=== PATIENT | female | born 1940 | race Caucasian/White ===

== ENCOUNTER 2024-11-28 12:02 | Emergency (ER) | payer MEDICARE, BC, SELFPAY ==
[2024-11-28 12:03] VITALS: BMI 21.9
[2024-11-28 12:15] VITALS: BP 175/96; PULSE 94; RESP 16; TEMP 36.8; O2SAT 96
--- NOTE | 2024-11-28 12:30 | EDNOTE_ITS ---
<Statement entered by Esther Virgen MD - 12/09/24 01:02> As co-signing physician, I was present and available for consult prn. I concur with the plan and care as documented by the midlevel provider. ED Epistaxis RME/HPI General Chief complaint: Epistaxis/Nasal Foreign Body Stated complaint: NOSEBLEED X3DAYS Time Seen by Provider: 11/28/24 12:07 Arrival date/time: 11/28/24 12:02 RME / HPI RME / HPI Narrative: 84-year-old female patient with significant history of hypertension not taking any blood thinner except for occasional aspirin came in for evaluation regarding nosebleeding on the left side has been ongoing for the last 3 days almost on a daily basis, lasting for several minutes but today it lasted for at least 1 hour. Currently she is not bleeding. She denies any dizziness denies any chest pain denies any other complaints. In the triage patient was noted to have a blood pressure of 175/86. Related Data Previous Rx's ?Medication ?Instructions ?Recorded oxymetazoline 0.05 % nasal mist 2 spray intranasal Q12 H PRN nasal 11/28/24 (Afrin (oxymetazoline)) congestion 3 days #15 mL Allergies Allergy/AdvReac Type Severity Reaction Status Date / Time No Known Allergies Allergy Verified 11/28/24 12:04 Review of Systems Review of Systems Narrative Review of Systems: Review of system reviewed and within normal limits except mentioned in HPI ED Exam Narrative Physical exam: VITAL SIGNS: Reviewed. GENERAL APPEARANCE: Alert and interactive, follows commands, no acute distress, HEAD AND FACE: Non-traumatic. ENT: PERRL, pink conjunctivitis, eyelid no trauma, Mucous membrane moist. NECK: Supple, nontender, no nuchal rigidity. CHEST: No tenderness, no crepitus, no paradoxical movement, no retractions. LUNGS: Clear, well ventilated, symmetric, no rales, no wheezing, no ronchi, no stridor, good breath sounds bilaterally. HEART: Regular rate, regular rhythm, no murmur, no gallops. ABDOMEN: Soft, positive bowel sounds, nondistended, no guarding, nontender, no rebound, no masses, RECTAL: Deferred. GENITAL: Deferred. NEUROLOGICAL: Gross motor function intact sensory function intact, Appropriate for age. MUSCULOSKELETAL: low back nontender, full range of motion. EXTREMITIES: Nontender, full range of motion. SKIN: Color pink, dry, no rash, no lacerations, no abrasions, no contusions. LYMPHATICS: Deferred. Course Quality Measures none Orders Category Date Time Status CBC [CBC] Stat Lab 11/28/24 12:51 Completed CMP [Comprehensive Metabolic Panel] Stat Lab 11/28/24 12:51 Completed PT [Prothrombin Time with INR] Stat Lab 11/28/24 12:51 Completed PTT [Partial Thromboplastin Time] Stat Lab 11/28/24 12:51 Completed Silver Nitrate Applicators Med 11/28/24 12:29 Discontinued 1 appl TOP X1 ONE Valsartan [Diovan] Med 11/28/24 12:38 Discontinued 160 mg PO X1 ONE Vital Signs Vital signs: Vital Signs Temperature 98.3 F 11/28/24 12:15 Pulse Rate 94 11/28/24 12:15 Respiratory Rate 16 11/28/24 12:15 Blood Pressure 175/96 H 11/28/24 12:15 Pulse Oximetry (%) 96 11/28/24 12:15 Oxygen Delivery Method Room Air 11/28/24 12:15 Epistaxis MDM Narrative MDM Narrative:: 84-year-old female patient with significant history of hypertension not taking any blood thinner except for occasional aspirin came in for evaluation regarding nosebleeding on the left side has been ongoing for the last 3 days almost on a daily basis, lasting for several minutes but today it lasted for at least 1 hour. Currently she is not bleeding. She denies any dizziness denies any chest pain denies any other complaints. In the triage patient was noted to have a blood pressure of 175/86. Patient did not take her blood pressure medication. Using silver nitrate, ice to the area on the nares there is no active bleeding however applied silver nitrate, patient tolerated procedure well. Patient did not have recurrence of nosebleeding in the ED. Patient's blood came back unremarkable no anemia PT PTT normal Patient data External records reviewed:: None Clinical information provided by:: patient Social determinants that could affect healthcare access:: none Patient has the following chronic illnesses:: Hypertension How is presenting disease/condition affected by chronic disease/condition?: exacerbated by Evaluation data The following diagnostics were reviewed and interpreted by me:: lab results Lab and/or radiology exams considered but not ordered:: None Interpretation Summary: None Medications / Prescriptions Medications or Prescriptions considered but not ordered:: None Medication administrations:: Medication Administration History Discontinued Medications Silver Nitrate (Silver Nitrate 1 Appl Ea) 1 appl TOP X1 ONE Stop: 11/28/24 12:30 Valsartan (Valsartan 80 Mg Tablet) 160 mg PO X1 ONE Stop: 11/28/24 12:39 Valsartan Consultations Consultation(s) initiated? (list below): No Diagnosis Epistaxis Differential Diagnosis: nasal bone fracture, anterior epistaxis and posterior epistaxis Most likely diagnosis given after review of the tests above:: Nosebleeding, controlled no recurrence Admission Indicated Admission indicated?: not indicated Admission Request Was there a request for admission?: No Disposition Plan Disposition Plan: Discharge Discharge Attestation Discharge Attestation: The patient and all family members were given an opportunity to ask questions and understood the discharge instructions. Discharge instructions specifically effects, indications for sooner follow up or return to the emergency department, and the expected course of current diagnosis. Patient condition: Stable Discharge Plan Plan Patient Disposition: HOME (Self Care) Discharge Disposition comment: Stable Prescriptions/Referrals Prescriptions/Med Rec: New Afrin (oxymetazoline) 0.05 % mist 2 spray intranasal Q12H PRN (Reason: nasal congestion) 3 Days Qty: 15 0RF Problem List Clinical Impression: Epistaxis Patient/Caregiver Discharge Instructions Discharge Activity: activity as tolerated Education Materials: ED Epistaxis (Adult) Additional Instructions: Thank you for the opportunity for serving you today. You are stable for discharged . You are advised to: Follow-up with your PCP in 1 to 2 days Return to ED for worsening of symptoms Increase oral fluids Take medication as prescribed as needed only for nosebleeding Please do not blow your nose for the next 48 hours Print Language: Bengali Stand Alone Forms: Bryanna Award Info., Patient Portal Info Letter DEVEN/SHOSHANA Supervising Physician DEVEN/SHOSHANA Supervising Physician: MD Filipe
[2024-11-28 13:02] LABS: Basophils # (Auto) 0.1 Thou/mm3 (0.0-0.2); Basophils % (Auto) 1 % (0-2.5); Eosinophils # (Auto) 0.2 Thou/mm3 (0.0-0.5); Eosinophils % (Auto) 2 % (0-10); Hematocrit 37.8 % (36.0-46.0); Hemoglobin 12.9 g/dL (12.0-16.0); Immature Granulocytes % (Auto) 0 % (0-0); Immature Granulocytes Auto 0.03 Thou/mm3 (0.00-0.00); Lymphocytes # (Auto) 1.8 Thou/mm3 (1.0-4.8); Lymphocytes % (Auto) 19 % (10-50); Mean Corpuscular HGB Conc 34.1 g/dl (31.0-37.0); Mean Corpuscular Hemoglobin 29.4 pg (25.0-35.0); Mean Corpuscular Volume 86 fL (80-100); Monocytes # (Auto) 0.8 Thou/mm3 (0.0-0.8); Monocytes % (Auto) 9 % (0-12); Neutrophils # (Auto) 6.3 Thou/mm3 (1.8-7.7); Neutrophils % (Auto) 69 % (37-80); Nucleated Red Blood Cell % 0 /100 WBC (0); Platelet Count 345 Thou/mm3 (140-440); RDW Standard Deviation 42.9 fL (36.4-46.3); Red Blood Count 4.39 Miln/mm3 (4.00-5.20); White Blood Count 9.2 Thou/mm3 (3.6-11.0)
[2024-11-28 13:15] LABS: Alanine Aminotransferase 15 U/L (10-49); Albumin, Serum 4.6 gm/dL (3.4-4.8); Albumin/Globulin Ratio 2.1 (1.2-2.2); Alkaline Phosphatase 76 U/L (46-116); Anion Gap 10 (7-16); Aspartate Amino Transferase 20 U/L (0-34); BUN/Creatinine Ratio 16 Ratio (12-20); Bilirubin,Total 0.5 mg/dL (0.3-1.2); Blood Urea Nitrogen 14 mg/dL (9-23); Calcium 9.4 mg/dL (8.3-10.6); Calcium (Corrected) 9.4 mg/dL (8.5-10.1); Chloride 102 mMol/L (98-107); Creatinine (Component) 0.9 mg/dL (0.6-1.3); Estimated Creatinine Clearance 39.9 mL/min (>60); Globulin 2.2 gm/dL (2.3-3.5); Glucose 116 mg/dL (74-106); Osmolality,Calculated 279 (275-295); Potassium 3.8 mMol/L (3.4-5.1); Sodium 139 mMol/L (136-145); Total Protein 6.8 gm/dL (5.7-8.2); eGFR > 60 See Note
[2024-11-28 13:16] LABS: Prothrombin Time 10.5 Seconds (9.0-12.2)
== END 2024-11-28 13:33 | disposition home or self-care (01) ==
PROVIDERS: Nurse Practitioner Family; Emergency Provider Emergency Medicine; PCP Internal Medicine
DX: R04.0 Epistaxis (principal)
CPT/HCPCS: 30901; 36415; 80053; 85025; 85610; 85730; 99283

== ENCOUNTER 2025-03-19 20:39 | Emergency (ER) | payer MEDICARE, BC, SELFPAY ==
[2025-03-19 20:42] VITALS: BMI 20.9
[2025-03-19 21:56] VITALS: BP 184/83; PULSE 89; RESP 16; TEMP 36.6; O2SAT 97
--- NOTE | 2025-03-19 22:06 | PD.EDSKIN ---
ED Skin Abcess FB-RME/HPI General Chief complaint: Skin/Abscess/Foreign Body Stated complaint: POSSIBLE SPIDER BITE SUNDAY(ABSCESS) Time Seen by Provider: 03/19/25 21:58 Arrival date/time: 03/19/25 20:39 RME / HPI RME / HPI narrative: 84-year-old female patient came in for evaluation regarding possible spider bite to the left forearm. It happened about 3 days ago, today patient noticed some redness and pustule like appearance. With discomfort. Also noticed some swelling on the surrounding. Denies any fever denies any other complaint. Dizziness vaccination is unknown. Related Data Previous Rx's ?Medication ?Instructions ?Recorded amoxicillin 875 mg-potassium 1 tab PO BID #14 tabs 03/19/25 clavulanate 125 mg tablet Allergies Allergy/AdvReac Type Severity Reaction Status Date / Time No Known Allergies Allergy Verified 03/19/25 20:47 Review of Systems Review of Systems Narrative Review of Systems: Review of system reviewed and within normal limits except mentioned in HPI ED Exam Narrative Physical exam: VITAL SIGNS: Reviewed. GENERAL APPEARANCE: Alert and interactive, follows commands, no acute distress, HEAD AND FACE: Non-traumatic. ENT: PERRL, pink conjunctivitis, eyelid no trauma, Mucous membrane moist. NECK: Supple, nontender, no nuchal rigidity. RECTAL: Deferred. GENITAL: Deferred. NEUROLOGICAL: Gross motor function intact sensory function intact, Appropriate for age. MUSCULOSKELETAL: low back nontender, full range of motion. EXTREMITIES: + Redness, swelling, with posterior leg appearance on the center, left posterior forearm, nonfluctuant, mild tenderness, full range of motion. Distal neurovascular status intact. SKIN: Color pink, dry, no rash, no lacerations, no abrasions, no contusions. LYMPHATICS: Deferred. Course Quality Measures none Orders Category Date Time Status Amoxicillin/Pot Clav 875 [Augmentin 875] Med 03/19/25 22:06 Once 1 tab PO X1 ONE TET,DIP/PERT AC (Adult)-Tdap [Boostrix Adult (Tdap) Med 03/19/25 22:06 Once Vacc] 0.5 ml IMI .ONCE ONE Vital Signs Vital signs: Vital Signs Temperature 97.9 F 03/19/25 21:56 Pulse Rate 89 03/19/25 21:56 Respiratory Rate 16 03/19/25 21:56 Blood Pressure 184/83 H 03/19/25 21:56 Pulse Oximetry (%) 97 03/19/25 21:56 Oxygen Delivery Method Room Air 03/19/25 21:56 Skin / Abscess / Foreign Body MDM Narrative MDM Narrative:: 84-year-old female patient came in for evaluation regarding possible spider bite to the left forearm. It happened about 3 days ago, today patient noticed some redness and pustule like appearance. With discomfort. Also noticed some swelling on the surrounding. Denies any fever denies any other complaint. Dizziness vaccination is unknown. Patient received Neosporin dressing. Patient was also given Augmentin. Was also given Boostrix. Patient was advised to return to the emergency room in 2 to 3 days for possible I&D if the affected area become fluctuant and ready for abscess drainage. Patient agrees with the plan Patient data External records reviewed:: None Clinical information provided by:: patient and family Social determinants that could affect healthcare access:: none Patient has the following chronic illnesses:: None How is presenting disease/condition affected by chronic disease/condition?: no chronic disease Evaluation data The following diagnostics were reviewed and interpreted by me:: other (specify) (None) Lab and/or radiology exams considered but not ordered:: None Interpretation Summary: None Medications / Prescriptions Medications or Prescriptions considered but not ordered:: None Medication administrations:: Vomiting, Boostrix and Neosporin dressing Consultations Consultation(s) initiated? (list below): No Diagnosis Skin/Abscess Differential Diagnosis: abscess of skin or subcutaneous tissue, cellulitis and insect bites Most likely diagnosis given after review of the tests above:: Infected insect bite Admission Indicated Admission indicated?: not indicated Admission Request Was there a request for admission?: No Disposition Plan Disposition Plan: Discharge Discharge Attestation Discharge Attestation: The patient and all family members were given an opportunity to ask questions and understood the discharge instructions. Discharge instructions specifically effects, indications for sooner follow up or return to the emergency department, and the expected course of current diagnosis. Patient condition: Stable Discharge Plan Plan Patient Disposition: HOME (Self Care) Discharge Disposition comment: Stable Prescriptions/Referrals Prescriptions/Med Rec: New amoxicillin-pot clavulanate 875-125 mg tablet 1 tab PO BID Qty: 14 0RF Problem List Clinical Impression: Infected insect bite Patient/Caregiver Discharge Instructions Discharge Activity: activity as tolerated Education Materials: ED Insect Bite Additional Instructions: Thank you for the opportunity for serving you today. You are stable for discharged . You are advised to: Follow-up with your PCP in 1 to 2 days Return to ED for worsening of symptoms Increase oral fluids Take medication as prescribed Daily dressing with bacitracin as needed Return to emergency room for possible I&D in 3 to 4 days. Print Language: Mohawk Stand Alone Forms: Bryanna Award Info., Patient Portal Info Letter DEVEN/SHOSHANA Supervising Physician DEVEN/SHOSHANA Supervising Physician: MD Matthias
[2025-03-19] MEDS: DIPHTH,PERTUSS(ACELL),TET VAC 0.5 ML SYR- ADULT IMi (22:21)
[2025-03-19] MEDS: AMOXICILLIN/POT CLAV 875 TABLET 1 TAB PO (22:24)
== END 2025-03-19 22:31 | disposition home or self-care (01) ==
LOC: SERX 22:36
PROVIDERS: Emergency Provider Emergency Medicine; PCP Family Medicine
DX: S50.862A Insect bite (nonvenomous) of left forearm, initial encounter (principal); L02.414 Cutaneous abscess of left upper limb; W57.XXXA Bitten or stung by nonvenomous insect and other nonvenomous arthropods, initial encounter; Z23 Encounter for immunization
CPT/HCPCS: 90471; 90715; 99284; A9270